=== PATIENT | male | born 1960 ===

== ENCOUNTER 2021-01-22 12:27 | Emergency (ER) | payer OTHER ==
[2021-01-22] MEDS: Diphtheria,Pertussis(Acell),Tetanus Vaccine 0.5 ML SDV IM ONE (12:54)
[2021-01-22] MEDS ORDERED: Cephalexin 500 MG Cap ONE (13:00)
--- NOTE | 2021-01-22 16:14 | EDM.PDOC ---
ED HPI GENERAL MEDICAL PROBLEM - General Chief Complaint: Laceration Stated Complaint: laceration to left hand Time Seen by Provider: 01/22/21 12:48 Source of Information: Reports: Patient, RN Notes Reviewed History Limitations: Reports: No Limitations - History of Present Illness INITIAL COMMENTS - FREE TEXT/NARRATIVE: This patient presents to the emergency department for evaluation of a hand laceration. He was gutting a deer yesterday when he lacerated the dorsum of his left hand, the incident occurred more than 24 hours ago.. He arrives with a clean and will very well approximated however there is distinct erythema around the wound as well as quite a bit of swelling in the dorsum of the hand. He has not had a fever. He denies other concerns or complaints. He is unable to remember when his last tetanus shot was. Onset Date: 01/21/21 Left Hand Pain Score (Numeric/FACES): 1 - Related Data Allergies Allergy/AdvReac Type Severity Reaction Status Date / Time Penicillins Allergy Rash Verified 01/22/21 12:51 Past Medical History - Past Health History Medical/Surgical History: Denies Medical/Surgical History Social & Family History - Recreational Drug Use Recreational Drug Use: No ED ROS GENERAL - Review of Systems Review Of Systems: Comprehensive ROS is negative, except as noted in HPI. ED EXAM, SKIN/RASH Exam: See Below Exam Limited By: No Limitations General Appearance: Alert, No Apparent Distress Eye Exam: Bilateral Eye: PERRL Ears: Normal External Exam Nose: Normal Inspection Head: Atraumatic, Normocephalic Neck: Normal Inspection, Full Range of Motion Respiratory/Chest: No Respiratory Distress, No Accessory Muscle Use Skin: Warm, Dry, Intact, Other (3 cm shaped laceration to dorsum of left hand. Wound is well approximated with erythema surrounding an area approximately 4 cm beyond the wound, this area is well indurated. The entire posterior hand is warm and swollen and tender to touch.) ED SKIN PROCEDURES - Laceration/Wound Repair Left Hand Appearance: Superficial, Clean Distal NVT: Neuro & Vascular Intact Closed with: Steri-Strips (4 Steri-Strips placed on top of benzoin) Lac/Wound length In cm: 3 Sterile Dressing Applied: Nurse Tetanus Status Addressed: Yes Complications: No Course - Vital Signs Last Recorded V/S: Last Vital Signs Temp 37.2 C 01/22/21 12:45 Pulse 92 01/22/21 12:45 Resp 18 01/22/21 12:45 BP 169/93 H 01/22/21 12:45 Pulse Ox 98 01/22/21 12:45 - Orders/Labs/Meds Meds: Medications Discontinued Medications Generic Name Dose Route Start Last Admin Trade Name Izzy PRN Reason Stop Dose Admin Diphtheria/Tetanus/Acell Pertussis 0.5 ml 01/22/21 12:51 01/22/21 12:54 Diphtheria,Pertussis(Acell),Tetanus Vaccine 0.5 Ml Sdv IM 01/22/21 12:52 0.5 ml .ONCE ONE Administration - Re-Assessments/Exams Free Text/Narrative Re-Assessment/Exam: This patient presents to the emergency department with a laceration to his left hand. The wound was evaluated but was not reopened. The laceration was held in place with Steri-Strips as noted above. There is no evidence of muscular, tendon, or bony damage damage with this laceration. There are no are however signs of infection. The patient will be started on Keflex, 500 mg caps: 1 capsule 3 times a day for 7 days. He was also given a tetanus pertussis booster which he tolerated well. Supportive care was discussed. The patient was stable at the time of discharge. 01/22/21 16:57 Departure - Departure Time of Disposition: 13:15 Disposition: Home, Self-Care 01 Condition: Good Clinical Impression: Laceration - Discharge Information Referrals: PCP,None [Primary Care Provider] - Forms: ED Department Discharge Care Plan Goals: take Cephalexin 500mg by mouth every eight hrs Sepsis Event Note (ED) - Evaluation Sepsis Screening Result: No Definite Risk - Focused Exam Vital Signs: Vital Signs Temp Pulse Resp BP Pulse Ox 01/22/21 12:45 37.2 C 92 18 169/93 H 98
== END 2021-01-22 13:07 | disposition home or self-care (01) ==
LOC: LB.ED 12:27
DX: S61.412A Laceration without foreign body of left hand, initial encounter (principal); Z88.0 Allergy status to penicillin; Z23 Encounter for immunization; W26.8XXA Contact with other sharp object(s), not elsewhere classified, initial encounter
CPT/HCPCS: 90471; 90715; 99282; A9270